=== PATIENT | female | born 1980 ===

== ENCOUNTER → 2020-09-24 | Outpatient (CLI) | payer OTHER | END | disposition home or self-care (01) | LOC: PRENATAL 09:00 | PROVIDERS: ATTEND Obstetrics & Gynecology Maternal & Fetal Medicine | DX: O10.011 Pre-existing essential hypertension complicating pregnancy, first trimester (principal); O36.80X1 Pregnancy with inconclusive fetal viability, fetus 1; O09.521 Supervision of elderly multigravida, first trimester; Z36.89 Encounter for other specified antenatal screening; Z3A.12 12 weeks gestation of pregnancy ==

== ENCOUNTER → 2020-11-05 | Outpatient (CLI) | payer OTHER | END | disposition home or self-care (01) | LOC: PRENATAL 08:00 | PROVIDERS: ATTEND Obstetrics & Gynecology Maternal & Fetal Medicine | DX: O35.0XX1 Maternal care for (suspected) central nervous system malformation in fetus, fetus 1 (principal); O35.3XX1 Maternal care for (suspected) damage to fetus from viral disease in mother, fetus 1; O98.512 Other viral diseases complicating pregnancy, second trimester; O10.012 Pre-existing essential hypertension complicating pregnancy, second trimester; O09.522 Supervision of elderly multigravida, second trimester; Z36.89 Encounter for other specified antenatal screening; Z3A.18 18 weeks gestation of pregnancy ==

== ENCOUNTER → 2020-12-09 | Outpatient (CLI) | payer OTHER | END | disposition home or self-care (01) | LOC: PRENATAL 09:30 | PROVIDERS: ATTEND Obstetrics & Gynecology Maternal & Fetal Medicine | DX: O26.842 Uterine size-date discrepancy, second trimester (principal); O10.012 Pre-existing essential hypertension complicating pregnancy, second trimester; O09.512 Supervision of elderly primigravida, second trimester; O24.410 Gestational diabetes mellitus in pregnancy, diet controlled; Z36.89 Encounter for other specified antenatal screening; Z3A.23 23 weeks gestation of pregnancy ==

== ENCOUNTER → 2021-01-13 | Outpatient (CLI) | payer OTHER | END | disposition home or self-care (01) | LOC: PRENATAL 09:30 | PROVIDERS: ATTEND Obstetrics & Gynecology Maternal & Fetal Medicine | DX: O26.843 Uterine size-date discrepancy, third trimester (principal); O10.013 Pre-existing essential hypertension complicating pregnancy, third trimester; O24.414 Gestational diabetes mellitus in pregnancy, insulin controlled; O09.523 Supervision of elderly multigravida, third trimester; Z36.89 Encounter for other specified antenatal screening; Z3A.29 29 weeks gestation of pregnancy ==

== ENCOUNTER → 2021-02-17 | Outpatient (CLI) | payer OTHER | END | disposition home or self-care (01) | LOC: PRENATAL 13:30 | PROVIDERS: ATTEND Obstetrics & Gynecology Maternal & Fetal Medicine | DX: O26.843 Uterine size-date discrepancy, third trimester (principal); O10.013 Pre-existing essential hypertension complicating pregnancy, third trimester; O24.410 Gestational diabetes mellitus in pregnancy, diet controlled; O09.523 Supervision of elderly multigravida, third trimester; Z36.89 Encounter for other specified antenatal screening; Z3A.34 34 weeks gestation of pregnancy ==

== ENCOUNTER 2021-03-10 12:00 | Inpatient (IN) | payer OTHER ==
[~2021-03-10] VITALS: Ht 162.6 cm; Wt 3.2 kg
[2021-03-16] MEDS ORDERED: PROCARDIA PO (06:25)
[2021-03-16] MEDS ORDERED: PRENATAL CAPLE1 EAC1 PO (06:25)
[2021-03-16] MEDS ORDERED: CHILDREN'S ASPI81 MG PO (06:26)
[2021-03-16] MEDS ORDERED: NIFEDIPINE ER30 M1 (09:46)
[2021-03-18] MEDS ORDERED: FUSION PLUS CA1 EACH PO (11:18)
[2021-03-18] MEDS ORDERED: IBU800 MG PO (11:18)
[2021-03-18] MEDS ORDERED: SURFAK240 M1 PO (11:18)
== END 2021-03-18 13:25 | disposition home or self-care (01) | DRG 787 ==
LOC: O/R 03-16 05:59 → SURG-SUITE 03-16 05:59 → OB/GYN 03-16 11:19 → SURG-SUITE 03-16 11:20 → OB/GYN 03-16 12:00 → SURG-SUITE 03-18 13:25
PROVIDERS: ADMIT Student in an Organized Health Care Education/Training Program; ATTEND Student in an Organized Health Care Education/Training Program
PROC: 4A1HXFZ Monitoring of Products of Conception, Cardiac Rhythm, External Approach (ICD-10-PCS; 2021-03-16)
PROC: 10D00Z1 Extraction of Products of Conception, Low, Open Approach (ICD-10-PCS; principal; 2021-03-16 08:30)
DX: O34.211 Maternal care for low transverse scar from previous cesarean delivery (principal); O10.02 Pre-existing essential hypertension complicating childbirth; O24.420 Gestational diabetes mellitus in childbirth, diet controlled; Z37.0 Single live birth; Z3A.37 37 weeks gestation of pregnancy